=== PATIENT | female | born 1965 | race Caucasian/White ===

== ENCOUNTER 2016-04-02 17:38 | Emergency (ER) | payer BC ==
[2016-04-02] MEDS ORDERED: OPTIRAY 350 100 ML VIAL HMH IV ONE (17:39)
[2016-04-02] MEDS ORDERED: DICYCLOMINE 20MG/2ML VIAL IM ONE (18:31)
[2016-04-02] MEDS ORDERED: ONDANSETRON 4 MG VIAL ONE (18:32)
[2016-04-02] MEDS ORDERED: SODIUM CHLORIDE 0.9% 1,000 ML ONE ×2 (18:32→19:32)
== END 2016-04-02 22:59 | disposition home or self-care (01) ==
LOC: ER 17:38
CPT/HCPCS: 36415; 74177; 80053; 81003; 83630; 83690; 85025; 87045; 87046; 87177; 87493; 96361; 96372; 96374